=== PATIENT | female | born 1950 ===

== ENCOUNTER 2023-06-11 10:00 | Inpatient (IN) | payer OTHER ==
[~2023-06-11] VITALS: Ht 160 cm; Wt 78.9 kg
[2023-06-11] MEDS ORDERED: ATIVAN2 M1 PO (12:14)
[2023-06-11] MEDS ORDERED: TIROSINT112 MCG PO (12:14)
[2023-06-11] MEDS ORDERED: SIMVAST PO (12:14)
[2023-06-11] MEDS ORDERED: [UNRECOGNIZED DRUG - OTHER] PO (12:15)
[2023-06-11] MEDS ORDERED: GABAPE PO (12:16)
[2023-06-11] MEDS ORDERED: DICLOFENAC-MIS1 EAC1 PO (12:16)
[2023-06-17 18:01] LABS: HEMATOCRIT 40.4 % (36.0-45.00); HEMOGLOBIN 13.5 g/dL (12.0-15.00); MEAN CELL VOLUME 91.5 fL (80.00-100.00); MEAN CORPUSCULAR HEMOGLOBIN 30.5 pg (27.00-32.0); MEAN CORPUSCULAR HGB CONC 33.4 g/dl (32.0-36.0); PLATELET COUNT 223 K/uL (150-450); RED BLOOD COUNT 4.42 M/uL (4.00-6.00); RED CELL DISTRIBUTION WIDTH 13.4 % (11.5-14.5)
[2023-06-17 18:19] LABS: ALBUMIN 3.6 gm/dL (3.4-5.0); CALCIUM 8.9 mg/dL (8.5-10.1); CREATININE SERUM 0.68 mg/dL (0.55-1.02); GFR 84.81; MAGNESIUM 1.9 mg/dL (1.8-2.4); PHOSPHOROUS 3.3 mg/dL (2.5-4.9); POTASSIUM 4.62 mEq/L (3.5-5.1)
[2023-06-18 08:00] LABS: HEMATOCRIT 35.8 % (36.0-45.00); HEMOGLOBIN 11.8 g/dL (12.0-15.00); MEAN CELL VOLUME 92.4 fL (80.00-100.00); MEAN CORPUSCULAR HEMOGLOBIN 30.6 pg (27.00-32.0); MEAN CORPUSCULAR HGB CONC 33.1 g/dl (32.0-36.0); PLATELET COUNT 193 K/uL (150-450); RED BLOOD COUNT 3.87 M/uL (4.00-6.00); RED CELL DISTRIBUTION WIDTH 12.9 % (11.5-14.5)
[2023-06-18] MEDS ORDERED: TRAM1TAB98 PO (08:04)
[2023-06-18 08:15] LABS: CALCIUM 8.2 mg/dL (8.5-10.1); CREATININE SERUM 0.55 mg/dL (0.55-1.02); GFR 108.34; MAGNESIUM 1.9 mg/dL (1.8-2.4); PHOSPHOROUS 2.7 mg/dL (2.5-4.9); POTASSIUM 3.84 mEq/L (3.5-5.1)
== END 2023-06-18 12:55 | disposition home or self-care (01) | DRG 349 ==
LOC: SURH 06-17 07:00 → O/R 06-17 07:17 → SURH 06-17 10:00 → SURG 06-17 15:13
PROVIDERS: ADMIT Surgery; ATTEND Surgery
PROC: 3E0T3BZ Introduction of Anesthetic Agent into Peripheral Nerves and Plexi, Percutaneous Approach (ICD-10-PCS; 2023-06-17)
PROC: 0DBP7ZZ Excision of Rectum, Via Natural or Artificial Opening (ICD-10-PCS; principal; 2023-06-17 07:00)
DX: D12.8 Benign neoplasm of rectum (principal); K62.82 Dysplasia of anus; Z20.822 Contact with and (suspected) exposure to COVID-19
CPT/HCPCS: 0184T; 64430